=== PATIENT | female | born 1965 | race American Indian/Alaskan Native ===

== ENCOUNTER 2018-01-16 14:51 | Emergency (ER) | payer SELFPAY ==
[2018-01-16 16:08] LABS: Basophils # (Auto) 0.1 K/mm3 (0.0-0.1); Basophils % (Auto) 1.2 % (0.0-1.8); Eosinophils # (Auto) 0.3 K/mm3 (0.0-0.4); Eosinophils % (Auto) 3.4 % (0.0-4.3); Hematocrit 47.9 % (30.3-42.9); Hemoglobin 15.1 gm/dl (10.1-14.3); Lymphocytes # (Auto) 2.3 K/mm3 (1.2-5.4); Lymphocytes % (Auto) 28.5 % (13.4-35.0); Mean Corpuscular HGB Conc 32 % (30-34); Mean Corpuscular Volume 80 fl (79-97); Monocytes # (Auto) 0.6 K/mm3 (0.0-0.8); Monocytes % (Auto) 7.2 % (0.0-7.3); Platelet Count 220 K/mm3 (140-440); Red Blood Count 5.96 M/mm3 (3.65-5.03)
[2018-01-16 16:09] LABS: Mean Corpuscular Hemoglobin 25 pg (28-32)
--- NOTE | 2018-01-16 16:32 | Emergency Department Report ---
HPI - General Chief Complaint: Syncope Time Seen by Provider: 01/16/18 15:55 - HPI HPI: 52-year-old female presents to the emergency department by EMS from a plasma donation center after the patient passed out shortly after finishing urination. She says that she donates about twice a week. She went outside to wait for a ride, started feeling dizzy, "saw stars" and then passed out. A passerby saw her pass out and called for an ambulance. The patient was found to have some low blood pressure with a systolic of about 80 at the time. Currently the patient says that she feels back to normal and "I feel great." She has a past medical history of diabetes. She does not have a primary care physician. She is a tobacco smoker. She denies any fever, chest pain, shortness of breath, headache. ED Past Medical Hx - Past Medical History Previous Medical History?: Yes Hx Diabetes: Yes - Surgical History Past Surgical History?: No - Medications Home Medications: Home Medications Medication Instructions Recorded Confirmed Last Taken Type Nitrofurantoin Monohyd/M-Cryst 100 mg PO BID #14 capsule 01/16/18 Unknown Rx [Macrobid 100 mg Capsule] ED Review of Systems ROS: Stated complaint: LOW BP Other details as noted in HPI Comment: All other systems reviewed and negative Constitutional: denies: chills, fever Eyes: denies: eye pain, eye discharge, vision change ENT: denies: ear pain, throat pain Respiratory: denies: cough, shortness of breath, wheezing Cardiovascular: syncope. denies: chest pain Gastrointestinal: denies: abdominal pain, nausea, diarrhea Genitourinary: denies: urgency, dysuria, discharge Musculoskeletal: denies: back pain, joint swelling, arthralgia Skin: denies: rash, lesions Neurological: denies: headache, weakness, paresthesias Physical Exam - Physical Exam Vital Signs: Vital Signs 01/16/18 01/16/18 01/16/18 15:09 15:15 15:20 Temperature 97.9 F Pulse Rate 89 Respiratory 18 Rate Blood Pressure 106/75 106/77 O2 Sat by Pulse 98 100 Oximetry 01/16/18 15:23 Temperature 97.9 F Pulse Rate 89 Respiratory 18 Rate Blood Pressure O2 Sat by Pulse 100 Oximetry Physical Exam: GENERAL: The patient is well-developed well-nourished. HENT: Normocephalic. Atraumatic. Patient has moist mucous membranes. EYES: Extraocular motions are intact. Pupils equal reactive to light bilaterally. No nystagmus. NECK: Supple. Trachea is midline. CHEST/LUNGS: Clear to auscultation. There is no respiratory distress noted. HEART/CARDIOVASCULAR: Regular. There is no tachycardia. There is no murmur. ABDOMEN: Abdomen is soft, nontender. Patient has normal bowel sounds. There is no abdominal distention. SKIN: Skin is warm and dry. NEURO: The patient is awake, alert, and oriented. The patient is cooperative. The patient has no focal neurologic deficits. The patient has normal speech. Cranial nerves II through XII grossly intact. No dysmetria. No pronator drift. MUSCULOSKELETAL: There is no tenderness or deformity. There is no limitation range of motion. There is no evidence of acute injury. Muscle strength 5 out of 5 upper and lower extremities bilaterally. ED Course Vital Signs 01/16/18 01/16/18 01/16/18 15:09 15:15 15:20 Temperature 97.9 F Pulse Rate 89 Respiratory 18 Rate Blood Pressure 106/75 106/77 O2 Sat by Pulse 98 100 Oximetry 01/16/18 15:23 Temperature 97.9 F Pulse Rate 89 Respiratory 18 Rate Blood Pressure O2 Sat by Pulse 100 Oximetry ED Medical Decision Making - Lab Data Result diagrams: 01/16/18 15:59 01/16/18 15:59 - EKG Data -: EKG Interpreted by [facility] EKG shows normal: sinus rhythm, axis, intervals, QRS complexes, ST-T waves Rate: normal - EKG Data When compared to previous EKG there are: previous EKG unavailable Interpretation: normal EKG - Medical Decision Making This patient presented after passing out just after donating plasma prior to presentation. On physical exam she currently does not have any focal, motor or sensory deficits in her cranial nerves are intact. Patient had some low blood pressure when EMS first found her but is currently in the normal range and has remained stable throughout her ED course. Orthostatic vital signs were done that were positive. EKG did not show any signs of ST elevation [place] or significant dysrhythmia. Patient's labs show hyperglycemia with uncontrolled diabetes but the patient does not appear to be in diabetic ketoacidosis as there is no elevation in her anion gap and no venous acidosis. She was given IV fluid, IV insulin and her blood sugar has come down from about 450 and is currently at 280 on Accu-Chek. Urinalysis shows a mild urinary tract infection and the patient has been given IV antibiotics. Urine drug screen was positive for cocaine. Patient denies using it today. It sounds like the patient's syncopal episode may be multifactorial. However, she has been reevaluated multiple times over multiple hours and there has been no further syncopal episodes or any neurological deficits. She says that she is feeling well and asking for discharge home. Patient will be discharged home with some antibiotics for a urinary tract infection and will be given multiple referrals for primary care. She has been instructed to stay away from any further illicit drug use. We discussed dietary and lifestyle changes to help with her hyperglycemia. She has been instructed to return to the emergency Department with any worsening of her symptoms or any acute distress. She was seen ambulatory in the emergency department prior to discharge and appeared stable while doing so. - Differential Diagnosis DKA, HHNK, orthostatic hypotension, dysrythmia, vasovagal, drug use Critical Care Time: No Critical care attestation.: If time is entered above; I have spent that time in minutes in the direct care of this critically ill patient, excluding procedure time. ED Disposition Clinical Impression: Hyperglycemia Syncope Qualifiers: Syncope type: unspecified Qualified Code(s): R55 - Syncope and collapse UTI (urinary tract infection) Qualifiers: Urinary tract infection type: acute cystitis Hematuria presence: without hematuria Qualified Code(s): N30.00 - Acute cystitis without hematuria Disposition: TO HOME OR SELFCARE Is pt being admited?: No Condition: Stable Instructions: Urinary Tract Infection in Women (ED), Syncope (ED), Diabetic Hyperglycemia (ED) Additional Instructions: Please follow-up with a primary care physician in the next few days. Return to the emergency department with any further episodes of passing out, any development of chest pain or shortness of breath, or with any acute distress. Please try and quit smoking. I recommend that you stay away from any further cocaine or illicit drug use. Take your diabetes medications. Keep a blood pressure log. Try and stay away from foods that are high in sugar, carbohydrates and starches. Prescriptions: Nitrofurantoin Monohyd/M-Cryst [Macrobid 100 mg Capsule] 100 mg PO BID #14 capsule Referrals: KOLTON TRIPATHI MD [Staff Physician] - 2-3 Days SANTA LOZANO MD [Staff Physician] - 2-3 Days [facility] [Outside] - 2-3 Days [facility] [Outside] - 2-3 Days Time of Disposition: 19:23
[2018-01-16 16:38] LABS: Alanine Aminotransferase 9 units/L (7-56); Albumin 3.3 g/dL (3.9-5); BUN/Creatinine Ratio 17; Blood Urea Nitrogen 15 mg/dL (7-17); Calcium 8.7 mg/dL (8.4-10.2); Hemolysis Index 12
[2018-01-16] MEDS ORDERED: HumuLIN R IV ONE (16:45)
[2018-01-16] MEDS ORDERED: NACL 0.9% 1000 ML 1,000 ML IV ONE (16:45)
[2018-01-16 17:05] LABS: Bilirubin,Urine NEG (Negative); Blood,Urine NEG (Negative); Color,Urine Yellow (Yellow); Mucus,Urine FEW /HPF; Protein,Urine <15 mg/dL mg/dL (Negative); Urobilinogen,Urine < 2.0 mg/dL (<2.0)
[2018-01-16 17:18] LABS: Amphetamine Screen,Urine PRESUMPTIVE NEGATIVE; Benzodiazepines Screen,Urine PRESUMPTIVE NEGATIVE; Cannabinoid Screen,Urine PRESUMPTIVE NEGATIVE; Methadone Screen,Urine PRESUMPTIVE NEGATIVE; Opiate Screen,Urine PRESUMPTIVE NEGATIVE
[2018-01-16] MEDS ORDERED: ROCEPHIN/NS 1 GM/50 ML 1 GM/50 ML BAG IV ONE (17:54)
[2018-01-16 17:59] LABS: Cocaine Screen,Urine PRESUMPTIVE POSITIVE
[2018-01-16 19:41] VITALS: BP 116/91
== END 2018-01-16 20:24 | disposition home or self-care (01) ==
LOC: ED 14:51
DX: E11.65 Type 2 diabetes mellitus with hyperglycemia (principal); N30.00 Acute cystitis without hematuria; R55 Syncope and collapse; Z79.899 Other long term (current) drug therapy
CPT/HCPCS: 36415; 80053; 80307; 81001; 82550; 82805; 82962; 84443; 84484; 85025; 93005; 93010; 96361; 96365; 96375; 99284; G0480; J0696; J7030; 80320; J1815